=== PATIENT | female | born 1990 | race Hispanic/Latino ===

== ENCOUNTER 2016-09-10 16:27 | Emergency (ER) | payer MEDICAID, OTHER ==
[2016-09-10] MEDS ORDERED: Sodium Chloride 0.9% 1,000 ML IV ONE (17:03)
[2016-09-10 17:11] LABS: RBC URINE 4 /hpf (0-3); URINE BACTERIA OCC (<OCC); URINE BILIRUBIN NEGATIVE (NEGATIVE); URINE COLOR Yellow (YELLOW); URINE GLUCOSE (UA) NORMAL (Normal); URINE KETONE NEGATIVE (NEGATIVE); URINE LEUKOCYTE ESTERASE 2+ Leu/uL (Negative); URINE PROTEIN NEGATIVE (NEGATIVE); URINE UROBILINOGEN NORMAL mg/dL (0.2-1.0); WBC URINE 9 /hpf (0-5)
[2016-09-10 17:15] LABS: URINE BLOOD 1+ (NEGATIVE)
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
[2016-09-10] MEDS ORDERED: Sodium Chloride 0.9% 1,000 ML ONE (17:25)
[2016-09-10 17:41] LABS: CHLORIDE 104 mmol/L (98-107); POTASSIUM 3.5 mmol/L (3.6-5.2); SODIUM 137 mmol/L (132-148)
[2016-09-10 17:43] LABS: BASO % 0.4 % (0.0-2.0); EOS # 0.3 K/uL (0.0-0.7); EOS % 2.8 % (0.0-4.0); GFR AFRICAN-AMERICAN > 60; LYMPH # 1.5 K/uL (1.0-4.3); LYMPH % 16.8 % (20.0-40.0); MEAN CELL VOLUME 89.3 fL (81.0-99.0); MEAN CORPUSCULAR HEMOGLOBIN 30.5 pg (27.0-31.0); MEAN CORPUSCULAR HGB CONC 34.2 g/dL (33.0-37.0); MEAN PLATELET VOLUME 8.7 fL (7.2-11.7); MONO # 0.4 K/uL (0.0-0.8); RED CELL DISTRIBUTION WIDTH 12.4 % (11.5-14.5); WHITE BLOOD COUNT 8.9 K/uL (4.8-10.8)
[2016-09-10 17:44] LABS: ALB/GLOB RATIO 1.2 (1.0-2.1); ALKALINE PHOSPHATASE 24 U/L (38-126); ALT/SGPT 22 U/L (9-52); AST/SGOT 15 U/L (14-36); BILIRUBIN,TOTAL 0.3 mg/dL (0.2-1.3); BLOOD UREA NITROGEN 13 mg/dL (7-17); CALCIUM 8.5 mg/dl (8.6-10.4); CARBON DIOXIDE 21 mmol/L (22-30); GLUCOSE,RANDOM 95 mg/dL (65-105); TOTAL PROTEIN 7.1 g/dL (6.3-8.3)
[2016-09-10 19:37] VITALS: BP 96/65; PULSE 88; RESP 20; TEMP 98.9; O2SAT 99
--- NOTE | 2016-09-11 18:11 | US ---
Ob ultrasound . History: . Sonographic evaluation of the gravid uterus performed Findings: The uterus anteverted measuring approximately 15.0 x 9.8 x 11.4 cm cm. Cervix is closed measuring 4.6 cm. There is a living intrauterine gestation. No evidence to suggest subchorionic hemorrhage. Measurements: Gestational sac: MSD = 7.78 cm = Yolk sac: Not visible pole: CRL = 7.93 cm = 14 weeks Heart motion detected at 152 BPM Average ultrasound age = 14 weeks 1 day +/- 1 week 0 day No free fluid seen in the cul de sac. Ovaries exhibit arterial flow. Impression: Living intrauterine gestation with average ultrasound age of 14 weeks 1 day +/- 1 week 0 day Cardiac activity documented at 172 BPM.
== END 2016-09-10 21:44 | disposition home or self-care (01) ==
LOC: C.ER 16:27
DX: O26.892 Other specified pregnancy related conditions, second trimester (principal); M54.9 Dorsalgia, unspecified; Z3A.14 14 weeks gestation of pregnancy

== ENCOUNTER 2016-11-16 03:29 | Inpatient (IN) | payer OTHER ==
[2016-11-16 03:37] VITALS: BMI 32.9
--- NOTE | 2016-11-16 04:16 | OBHP ---
Datetime: 11/16/2016 03:56 IP Adm Impression: , intrauterine IP Adm Impression Other: demise IP Admit Plan: Admit to unit Admit Comment, IP Provider: chief complaint- decreased movement HPI 26 y/o at 23.4 wga with c/o not feeling the baby move for last few days.Patient denies va ginal bleeding or loss of fluid Patient denies nausea, vomiting, headache, chest pain, shortness of breath,, numbness or tingling in hands and feet course uncomplicated PMH denies PSH denies OBGYN HX ; NVDX2; TOPX2 Social hx denies tobacco,alcohol or illicit drug use Exam see exam section Bedside ultrasound- no heart beat seen A/P 26 y/o at 23.4 wga with c/o not feeling baby move.On bedside ultrasound no heart beat see n.Discussed findings with patient .Reviewed intrauterine .causes discussed in detail with patient.Discussed induction versus D_E.Patient wants to proceed with induction . -Admit patient -ultrasound -routine orders, hsv1 and 2 antobodies, hiv, rpr, rubella, parvovirus antiboides, tsh, hemoglobin a1c, factor v leiden mutation, prothrombin gene mutation and antithrombin 3 mutation analysis -monitor patient closely Pelvic Type - PN: Adequate Extremities - PN: Normal Abdomen - PN: Normal Back - PN: Normal Lungs - PN: Normal Heart - PN: Normal Neurologic - PN: Normal General - PN: Normal EGA AdmitDate IP: 23.4 Vital Signs Provider: Reviewed; Within Normal Limits IP Chief Complaint: Decreased movement Genitourinary Exam: Normal DTRs - PN: Normal
[2016-11-16] MEDS: Lactated Ringer's 1,000 ML IV SCH ×3 (04:25→17:00)
[2016-11-16 04:58] LABS: CHLORIDE 103 mmol/L (98-107); POTASSIUM 3.5 mmol/L (3.6-5.2); SODIUM 137 mmol/L (132-148)
[2016-11-16 04:59] LABS: BASO % 0.3 % (0.0-2.0); EOS # 0.2 K/uL (0.0-0.7); EOS % 1.8 % (0.0-4.0); HEMATOCRIT 35.2 % (34.0-47.0); LYMPH # 1.7 K/uL (1.0-4.3); LYMPH % 21.1 % (20.0-40.0); MEAN CELL VOLUME 89.9 fL (81.0-99.0); MEAN CORPUSCULAR HEMOGLOBIN 30.3 pg (27.0-31.0); MEAN CORPUSCULAR HGB CONC 33.7 g/dL (33.0-37.0); MEAN PLATELET VOLUME 9.7 fL (7.2-11.7); MONO # 0.4 K/uL (0.0-0.8); WHITE BLOOD COUNT 8.2 K/uL (4.8-10.8)
[2016-11-16 05:00] LABS: BILIRUBIN,TOTAL 0.6 mg/dL (0.2-1.3); GFR AFRICAN-AMERICAN > 60
[2016-11-16 05:01] LABS: ALB/GLOB RATIO 1.2 (1.0-2.1); ALKALINE PHOSPHATASE 43 U/L (38-126); ALT/SGPT 32 U/L (9-52); AST/SGOT 28 U/L (14-36); BLOOD UREA NITROGEN 10 mg/dL (7-17); CALCIUM 8.5 mg/dl (8.6-10.4); CARBON DIOXIDE 23 mmol/L (22-30); GLUCOSE,RANDOM 92 mg/dL (65-105); TOTAL PROTEIN 6.8 g/dL (6.3-8.3)
[2016-11-16 05:12] LABS: RBC URINE 5 /hpf (0-3); URINE BACTERIA RARE (<OCC); URINE BILIRUBIN NEGATIVE (NEGATIVE); URINE BLOOD NEGATIVE (NEGATIVE); URINE COLOR Yellow (YELLOW); URINE GLUCOSE (UA) NORMAL (Normal); URINE KETONE NEGATIVE (NEGATIVE); URINE PROTEIN NEGATIVE (NEGATIVE); URINE UROBILINOGEN NORMAL mg/dL (0.2-1.0); WBC URINE 7 /hpf (0-5)
[2016-11-16 05:13] LABS: URINE LEUKOCYTE ESTERASE 1+ Leu/uL (Negative)
[2016-11-16 05:33] LABS: THYROID STIMULATING HORMONE 3.68 mIU/L (0.46-4.68)
[2016-11-16] MEDS ORDERED: Nalbuphine 20 mg/ml Inj (1 ml) IVP PRN (08:38)
--- NOTE | 2016-11-16 10:39 | US ---
PROCEDURE: HISTORY: decreased movement COMPARISON: Obstetrical ultrasound examination undo TECHNIQUE: 09/10/2016 FINDINGS: Ultrasound examination demonstrates an intrauterine gestation in breech presentation. There is no limb movement noted. There is no cardiac activity. The cervix is closed and measures 3.7 cm in length. A normal quantity of amniotic fluid is visualized. Anterior placenta is noted. There is no placenta previa. biometry yields a gestational age of 23 weeks 4 days. The estimated weight is 561.17 g. The THONG by ultrasound examination is 03/11/2017. IMPRESSION: Findings consistent with demise. No cardiac activity observed. Twenty-three week 4 day gestation. Breech presentation. No placenta previa.
--- NOTE | 2016-11-16 13:24 | OBPN ---
Datetime: 11/16/2016 11:18 IP Procedures Other: cervical ripening/induction IP Progress Impression Other: IUFD at 23w 4d IP Informed Consent Obtain: Dilatation and Curretage; Risks, Benefits and Alternatives Discussed IP Progress Plan: Induction; Cervical Ripening Contraction Comments Provider: none FHR - Baseline A Provider: N/A Gestation - Est Wks by US: 23w 4d IP Progress Note Comment: Patient seen, evaluated and counseled at approximately 0820 hours. Receive d in bed in Treatment room; later transfered to R #3; significant other present and emotionally dis traught. At that time, S/P official ultrasound evaluaton confirming intrauterine at 24 we eks. Patient also crying appropriately. 1) patient was offered having an autopsy performed - grossly and for chromosomal analysis. She, an d FOB, declined (modified "refusal" obtained, signed, dated, witnessed and placed in chart. 2) induction process was explained. Discussion of possible risks, potential complications includi ng but not limited to complications stemming from Breech presentation (head entrapment) and the possi blility of surgical intervention - from uterine evacuation (curettage) of any retained products of co nception to exploratory laparotomy to hysterectomy. Other possible complications were also discussed including but notlimted to infection, requiring antibiotics; hemorrhage, requiring blood transfusion. Patient expressed an understanding and agrees to the aboe. No questoins offered. Consents signed, da blake, witnessed and placed in the chart. P.E.: WD in NAD; appropriately sad. Reports mild abdominal cramps. Lungs: CTA bilaterally Cardiac: RRR, normal S1, S2 Abdomen: Gravid. Soft. Non tender in all quadrants - cervical exam: as above. 600 micrograms placed in posterior vaginal vault Extremities: (+) multiple tattooes; (+) scratch suggs on lower extremities, right >> left. No calf tenderness Labs: 1) sono: Breech, no cardiac activity, AGA 24 weeks. 2) UDS: (+) opiates and cocaine Assessment: 35 yo P2022, 23w 4d, IUFD for induction and uterine evacuation. As above. Clinically s table. Plan: 1) NPO 2) cytotec 600 micrograms pV every 6 hours, until fetus is delivered 3) Nubain 10 mg IVP every 4 hours, PRN, moderate to severe pain 4) Phenergan 25 milligrams IVP every 4 hours, moderate to severe pain 5) Bereavement counseling. 6) Close observation Vital Signs Provider: Reviewed; Within Normal Limits Dilatation, Provider: FT Effacement, Provider: 40 Station, Provider: -3
[2016-11-16] MEDS ORDERED: Nalbuphine 20 mg/ml Inj (1 ml) ONE (17:08)
[2016-11-16 17:10] LABS: RAPID PLASMA REAGIN NONREACTIVE (NONREACTIVE)
[2016-11-16] MEDS ORDERED: Clindamycin 600 MG in Sodium Chloride 0.9% 100 ML IV SCH (19:00)
[2016-11-16] MEDS ORDERED: Gentamicin 80 mg/2mL Inj. IVPB SCH (19:00)
[2016-11-16] MEDS ORDERED: Clindamycin 600mg/50ml D5W 600 MG/50 ML VIAL IVPB ONE (19:45)
[2016-11-16] MEDS: Clindamycin 600mg/50ml D5W 600 MG/50 ML VIAL IVPB SCH (19:47)
[2016-11-16] MEDS ORDERED: Lidocaine 2% Inj (20ml) ONE (20:19)
[2016-11-16] MEDS ORDERED: Oxytocin 30 UNIT 30 UNITS/500 ML BAG IV SCH (21:00)
[2016-11-16] MEDS: Gentamicin 330 MG in Sodium Chloride 0.9% 250 ML IVPB SCH (22:30)
[2016-11-16 23:57] LABS: BASO % 0.2 % (0.0-2.0); EOS % 0.2 % (0.0-4.0); HEMATOCRIT 30.9 % (34.0-47.0); LYMPH # 2.1 K/uL (1.0-4.3); LYMPH % 13.7 % (20.0-40.0); MEAN CELL VOLUME 90.6 fL (81.0-99.0); MEAN CORPUSCULAR HEMOGLOBIN 30.4 pg (27.0-31.0); MEAN CORPUSCULAR HGB CONC 33.6 g/dL (33.0-37.0); MEAN PLATELET VOLUME 9.1 fL (7.2-11.7); MONO # 0.9 K/uL (0.0-0.8); MONO % 5.8 % (0.0-10.0); NRBC % 0.1 % (0.0-2.0); WHITE BLOOD COUNT 15.3 K/uL (4.8-10.8)
[2016-11-17] MEDS: Ampicillin 2 GM in Sodium Chloride 0.9% 100 ML IVPB SCH ×5 (00:02→22:56)
[2016-11-17] MEDS ORDERED: Oxycodone/Acetaminophen 5/325 mg Tab PO PRN (01:28)
[2016-11-17] MEDS: Clindamycin 600mg/50ml D5W 600 MG/50 ML VIAL IVPB SCH ×3 (02:40→18:00)
[2016-11-17] MEDS: Lactated Ringer's 1,000 ML IV SCH (04:24)
--- NOTE | 2016-11-17 06:52 | OBDS ---
DELIVERY PERSONNEL Delivery Doctor: Mir Bob MD Clinical Team Manager: Reba Osei RN MATERNAL INFORMATION Delivery Anesthesia: None Medications in Delivery: pitocin Estimated Blood Loss (ml): 300 Placenta Cultured: No Maternal Complications: None Provider Comments: Vagianl delivery of fetus, Breech presentation, en caul, RSA, Apgars 0/0; sk in on forehead and left thigh - slight peeling. Foul odor noted to bloody amnionic fluid; also meconi um stained. Umbilical cord doubly clamped and cut. High dose pitocin initiated. Subsequently, placenta passed spontaneously. Also noted for foul odor. Grossly intact; difficult t o appreciate vessels; cord is edematous. Bimanual massage performed; blood clots expressed and uterus contracted and firm. Empathy and support provided to parents. Infant wrapped appropriately; placed in warmer for them t o view at their discretion. Patient had spiked a fever prior to delivery: started on gentamicina nd clindamycin. Further tempe rature elevation to 101.6 after delivery: ampicillin added. Mother in stable conditoin. LABOR SUMMARY EDC: 03/11/2017 00:00 No. Babies in Womb: 1 Attempted: No Labor Anesthesia: None LABOR INFORMATION Reason for Induction: Demise Onset of Labor: 11/16/2016 19:34 Complete Dilatation: 11/16/2016 20:15 Cervical Ripening Agents: Cytotec @ (Annotations: 600mcg intravaginal by Dr. Bob) Oxytocin: N/A Group B Beta Strep: N/A Antibiotics # of Doses: 1 Antibiotics Time of Last Dose: 1946 Steroids Given: None Reason Steroids Not Administered: Not Applicable MEMBRANES Membranes Rupture Method: Spontaneous Rupture of Membranes: 11/16/2016 20:20 Length of Rupture (hrs): 0.03 Amniotic Fluid Color: Heavy Meconium Amniotic Fluid Amount: Moderate Amniotic Fluid Odor: None STAGES OF LABOR Stage 1 hrs: 0 Stage 1 min: 41 Stage 2 hrs: 0 Stage 2 min: 7 Stage 3 hrs: 0 Stage 3 min: 50 Total Time in Labor hrs: 1 Total Time in Labor min: 38 VAGINAL DELIVERY Episiotomy: None Laceration Extension: N/A Laceration Type: None Laceration Repair: Not Applicable Initial Vag Sponge Count: 10 Final Vag Sponge Count: 10 Initial Vag Sharps Count: 0 Sponge Count Correct: Yes Sharps Count Correct: N/A Count Comment: correct BABY A INFORMATION Infant Delivery Date/Time: 11/16/2016 20:22 Method of Delivery: Vaginal Born in Route : No : N/A Forceps: N/A Vacuum Extraction: N/A Shoulder Dystocia : No SHOULDER DYSTOCIA BABY A Delivery Date/Time: 11/16/2016 20:22 PRESENTATION/POSITION BABY A Presentation: Breech Cephalic Presentation: N/A Breech Presentation: Sreekanth PLACENTA INFORMATION BABY A Placenta Delivery Time : 11/16/2016 21:12 Placenta Method of Delivery: Spontaneous Placenta Status: Delivered SCORES BABY A Heart Rate 1 min: Absent Resp Effort 1 min: Absent Reflex Irritability 1 min: No Response Muscle Tone 1 min: Flaccid Color 1 min: Blue/Pale SCORE 1 MIN: 0 Heart Rate 5 min: Absent Resp Effort 5 min: Absent Reflex Irritability 5 min: No Response Muscle Tone 5 min: Flaccid Color 5 min: Blue/Pale SCORE 5 MIN: 0 INFORMATION BABY A Gestational Age at Delivery: 23.4 Gestational Status: Outcome : Stillborn Sex: Male WEIGHT/LENGTH BABY A Infant Birthweight (gms): 730 Infant Weight (lb): 1 Weight (oz): 10 Infant Length Inches: 11.50 Infant Length cms: 29.2 CORD INFORMATION BABY A Cord Blood Taken: N/A Infant Suction: None ASSESSMENT BABY A Infant Complications: Meconium; Other Complications Other: demise Physical Findings at Delivery: Other Physical Findings Other: demise some skin peeling noted Health Technician Hearing/ALS Called : No Care By: Daniele TILLEY
--- NOTE | 2016-11-17 08:12 | OBPPN ---
Datetime: 11/17/2016 08:07 PP Pain Prov: Within normal limits PP Nausea Prov: Denies PP Flatus Prov: Yes PP Heart Prov: Normal PP Lungs Prov: Normal PP Abdomen/Uterus Prov: Normal PP CVA Tenderness Prov: Normal PP Extremities Prov: Normal PP C/S Incision Prov: Not Applicable PP Progress Prov: Not Applicable PP Progress Note Prov: S-patient denies any complaints.Pain well controlled.Denies nausea, vomiting, headache. chest pain, shortness of breath, numbness or tingling in hands and feet O-VS tmax 101.4 at 9.44 pm 11/16/2016.afebrile now Fundus firm and below umbilcius Extremities no calf tenderness A/P Patient s/p vaginal delivery ppd1.IUFD.Intrapartum fever.Patient on amp, gent and clinda.afebr ile now -continue antibiotics till afebrile for 24 hours -social science instructor consult -anticipate discharge tomorrow if stable - Vital Signs Provider PP: Reviewed Vital Signs Provider Details PP: tmax at 101.8 at 9.44 pm on 11/16/2016
[2016-11-17] MEDS: Saccharomyces Boulardi 250 mg Cap PO SCH (11:41)
[2016-11-17 12:09] LABS: BASO % 0.3 % (0.0-2.0); EOS # 0.1 K/uL (0.0-0.7); EOS % 1.3 % (0.0-4.0); HEMATOCRIT 32.7 % (34.0-47.0); LYMPH # 1.6 K/uL (1.0-4.3); LYMPH % 17.9 % (20.0-40.0); MEAN CELL VOLUME 90.9 fL (81.0-99.0); MEAN CORPUSCULAR HEMOGLOBIN 30.7 pg (27.0-31.0); MEAN CORPUSCULAR HGB CONC 33.8 g/dL (33.0-37.0); MEAN PLATELET VOLUME 9.4 fL (7.2-11.7); MONO # 0.5 K/uL (0.0-0.8); MONO % 5.8 % (0.0-10.0); WHITE BLOOD COUNT 8.9 K/uL (4.8-10.8)
[2016-11-17 16:04] LABS: TOXOPLASMA IGG AB <0.91 (<0.91)
[2016-11-17 18:40] LABS: CYTOMEGALOVIRUS AB (IGM) <30.00 AU/mL
[2016-11-17] MEDS: Gentamicin 330 MG in Sodium Chloride 0.9% 250 ML IVPB SCH (21:10)
[2016-11-18] MEDS: Clindamycin 600mg/50ml D5W 600 MG/50 ML VIAL IVPB SCH (03:26)
[2016-11-18] MEDS: Ampicillin 2 GM in Sodium Chloride 0.9% 100 ML IVPB SCH (04:24)
--- NOTE | 2016-11-18 08:14 | OBPPN ---
Datetime: 11/18/2016 08:12 PP Pain Prov: Within normal limits PP Nausea Prov: Denies PP Flatus Prov: Yes PP Heart Prov: Normal PP Lungs Prov: Normal PP Abdomen/Uterus Prov: Normal PP Extremities Prov: Normal PP Comments Phys Exam Prov: fudus below umblicus ext no edema,no calf ten PP Impression Prov: Normal progression PP Plan Prov: Discharge PP Progress Note Prov: pt was seen at bed side, pain under control,no n/v, tolerating deit,voiding,m in lochias,no fever ppd#1 s/p non viable delivery dc home no sex motrin prn doxycyline 100 mg bid x 5 days f/u in clinic in 2week Vital Signs Provider PP: Reviewed; Within Normal Limits
--- NOTE | 2016-11-18 08:16 | OBDCSUM ---
Datetime: 11/18/2016 08:14 Discharged to, Provider: Home Follow up at, Provider: clinic Disch Instr Diet: Regular Follow up in weeks, Provider: 2week Disch Activity Restrictions: No exercising; No driving; Minimize walking; Minimize stair-climbing; N o sexual activity; Nothing in vagina - Tsaile, tampons, douche Discharge Comment, Provider: no sex motrin prn doxyclyine 100 mg bid x 5 days f/u in 2week Discharge Diagnosis Prov Other: non viable delivery 23weeks
--- NOTE | 2016-11-18 08:29 | CP.PCM.DIS ---
Provider - Provider Date of Admission: 11/16/16 04:03 Attending physician: Ruiz Nuñez MD Time Spent in preparation of Discharge (in minutes): 40 Diagnosis - Discharge Diagnosis (1) demise Status: Resolved Hospital Course - Lab Results Lab Results: Most Recent Lab Values WBC 8.9 K/uL (4.8-10.8) 11/17/16 11:59 RBC 3.59 Mil/uL (3.80-5.20) L 11/17/16 11:59 Hgb 11.0 g/dL (11.0-16.0) 11/17/16 11:59 Hct 32.7 % (34.0-47.0) L 11/17/16 11:59 MCV 90.9 fL (81.0-99.0) 11/17/16 11:59 MCH 30.7 pg (27.0-31.0) 11/17/16 11:59 MCHC 33.8 g/dL (33.0-37.0) 11/17/16 11:59 RDW 13.0 % (11.5-14.5) 11/17/16 11:59 Plt Count 188 K/uL (130-400) 11/17/16 11:59 MPV 9.4 fL (7.2-11.7) 11/17/16 11:59 Neut % (Auto) 74.7 % (50.0-75.0) 11/17/16 11:59 Lymph % (Auto) 17.9 % (20.0-40.0) L 11/17/16 11:59 Craig % (Auto) 5.8 % (0.0-10.0) 11/17/16 11:59 Eos % (Auto) 1.3 % (0.0-4.0) 11/17/16 11:59 Baso % (Auto) 0.3 % (0.0-2.0) 11/17/16 11:59 Neut # 6.6 K/uL (1.8-7.0) 11/17/16 11:59 Lymph # 1.6 K/uL (1.0-4.3) 11/17/16 11:59 Craig # 0.5 K/uL (0.0-0.8) 11/17/16 11:59 Eos # 0.1 K/uL (0.0-0.7) 11/17/16 11:59 Baso # 0.0 K/uL (0.0-0.2) 11/17/16 11:59 Sodium 137 mmol/L (132-148) 11/16/16 04:49 Potassium 3.5 mmol/L (3.6-5.2) L 11/16/16 04:49 Chloride 103 mmol/L (98-107) 11/16/16 04:49 Carbon Dioxide 23 mmol/L (22-30) 11/16/16 04:49 Anion Gap 15 (10-20) 11/16/16 04:49 BUN 10 mg/dL (7-17) 11/16/16 04:49 Creatinine 0.4 MG/DL (0.7-1.2) L 11/16/16 04:49 Est GFR ( Amer) > 60 11/16/16 04:49 Est GFR (Non-Af Amer) > 60 11/16/16 04:49 Random Glucose 92 mg/dL (65-105) 11/16/16 04:49 Hemoglobin A1c 5.1 % (4.2-6.5) 11/16/16 04:49 Calcium 8.5 mg/dl (8.6-10.4) L 11/16/16 04:49 Total Bilirubin 0.6 mg/dL (0.2-1.3) 11/16/16 04:49 AST 28 U/L (14-36) 11/16/16 04:49 ALT 32 U/L (9-52) 11/16/16 04:49 Alkaline Phosphatase 43 U/L (38-126) 11/16/16 04:49 Total Protein 6.8 g/dL (6.3-8.3) 11/16/16 04:49 Albumin 3.7 g/dL (3.5-5.0) 11/16/16 04:49 Globulin 3.1 gm/dL (2.2-3.9) 11/16/16 04:49 Albumin/Globulin Ratio 1.2 (1.0-2.1) 11/16/16 04:49 TSH 3rd Generation 3.68 mIU/L (0.46-4.68) 11/16/16 04:49 Urine Color Yellow (YELLOW) 11/16/16 04:49 Urine Clarity Hazy (Clear) 11/16/16 04:49 Urine pH 6.0 (5.0-8.0) 11/16/16 04:49 Ur Specific Muse 1.006 (1.003-1.030) 11/16/16 04:49 Urine Protein Negative mg/dL (NEGATIVE) 11/16/16 04:49 Urine Glucose (UA) Normal mg/dL (Normal) 11/16/16 04:49 Urine Ketones Negative mg/dL (NEGATIVE) 11/16/16 04:49 Urine Blood Negative (NEGATIVE) 11/16/16 04:49 Urine Nitrate Negative (NEGATIVE) 11/16/16 04:49 Urine Bilirubin Negative (NEGATIVE) 11/16/16 04:49 Urine Urobilinogen Normal mg/dL (0.2-1.0) 11/16/16 04:49 Ur Leukocyte Esterase 1+ Sanjiv/uL (Negative) H 11/16/16 04:49 Urine WBC (Auto) 7 /hpf (0-5) H 11/16/16 04:49 Urine RBC (Auto) 5 /hpf (0-3) H 11/16/16 04:49 Ur Squamous Epith Cells 7 /hpf (0-5) H 11/16/16 04:49 Urine Bacteria Rare (<OCC) 11/16/16 04:49 Urine Opiates Screen Negative (NEGATIVE) 11/16/16 04:49 Urine Methadone Screen Negative (NEGATIVE) 11/16/16 04:49 Ur Barbiturates Screen Negative (NEGATIVE) 11/16/16 04:49 Ur Phencyclidine Scrn Negative (NEGATIVE) 11/16/16 04:49 Ur Amphetamines Screen Negative (NEGATIVE) 11/16/16 04:49 U Benzodiazepines Scrn Negative (NEGATIVE) 11/16/16 04:49 U Oth Cocaine Metabols Negative (NEGATIVE) 11/16/16 04:49 U Cannabinoids Screen Negative (NEGATIVE) 11/16/16 04:49 RPR Nonreactive (NONREACTIVE) 11/16/16 04:49 CMV IgG Ab 4.20 U/mL H 11/16/16 07:00 CMV IgM Ab <30.00 AU/mL 11/16/16 07:00 Hep Bs Antigen Negative (NEGATIVE) 11/16/16 04:49 Hep Bs Antibody Positive (NEGATIVE) 11/16/16 04:49 Hepatitis C Antibody Negative (NEGATIVE) 11/16/16 04:49 HSV I IgG Ab 28.00 index H 11/16/16 07:00 HSV II IgG 15.00 index H 11/16/16 07:00 HIV 1&2 Antibody Screen Negative (NEGATIVE) 11/16/16 04:49 Rubella IgG Antibody Positive (POSITIVE) 11/16/16 04:49 Toxoplasma IgG Ab <0.91 (<0.91) 11/16/16 07:00 Blood Type A POSITIVE 11/16/16 05:15 Antibody Screen Negative 11/16/16 05:15 - Hospital Course Hospital Course: This is a 26 year old female who presented at 23.4wks gestation with complaint of decreased and subsequent cessation of appreciable movement. The patient denied ROM, N/V/D, and vaginal bleeding on admission. The patient delivered a fetus on 11/17/16. During the delivery, malodorous, bloody amniotic fluid was appreciated. Prior to deliver the patient was noted to be febrile at 101.6*. The patient was started on gentamycin, clindamycin, and ampicillin. The patient was monitored on the floor. After 24 hours afebrile, the patient was stable for DC home. The discharge plan and follow ups were extensively discussed with the patient who verbalized complete understanding and agreement with the plan and follow up plan. The patient's medical condition was also discussed and complete understanding was again verbalized. At this time , after discussion of all issues, the patient was deemed medically fit for discharge - Date & Time of H&P Date of H&P: 11/16/16 Time of H&P: 04:16 Discharge Exam - Head Exam Head Exam: ATRAUMATIC, NORMAL INSPECTION, NORMOCEPHALIC - Eye Exam Eye Exam: EOMI, Normal appearance Pupil Exam: NORMAL ACCOMODATION - ENT Exam ENT Exam: Mucous Membranes Moist - Neck Exam Neck exam: Full Rom, Normal Inspection - Respiratory Exam Respiratory Exam: Clear to PA & Lateral, NORMAL BREATHING PATTERN, UNREMARKABLE. absent: Rales, Rhonchi, Wheezes, Respiratory Distress, Stridor - Cardiovascular Exam Cardiovascular Exam: REGULAR RHYTHM, RRR, +S1, +S2. absent: Diastolic murmur, Systolic Murmur - GI/Abdominal Exam GI & Abdominal Exam: Normal Bowel Sounds, Soft, Unremarkable. absent: Distended , Firm, Guarding, Rigid, Tenderness - Neurological Exam Neurological exam: Alert, CN II-XII Intact, Normal Gait, Oriented x3 - Skin Skin Exam: Dry, Intact, Normal Color, Warm Discharge Plan - Discharge Medications Prescriptions: Doxycycline Hyclate 100 mg PO BID #14 capsule Ibuprofen [Motrin Tab] 800 mg PO TID PRN #30 tab PRN Reason: Pain - Follow Up Plan Condition: GOOD Disposition: HOME/ ROUTINE Instructions: Doxycycline (By mouth), Ibuprofen (By mouth) Additional Instructions: 1.) Take Doxycycline 1 tab by mouth twice daily x 7 days 2.) Take Motrin by mouth every 8 hours as needed for pain 3.) Refrain from sexual intercourse x 4 weeks 4.) Bleeding and spotting is possible for the next 4-6 weeks 5.) If fever returns, please return to the ED for evaluation 6.) If any symptoms return, please return to the ED for evaluation
[2016-11-18 08:39] VITALS: BP 104/56; PULSE 72; RESP 18; TEMP 97.9; O2SAT 98
[2016-11-18] MEDS: Saccharomyces Boulardi 250 mg Cap PO SCH (09:03)
[2016-11-18] MEDS ORDERED: Potassium Chloride 20 mEq ER Tab PO SCH (10:00)
[2016-11-18 13:56] LABS: PARVOVIRUS B19 AB (IGG) 0.2 (<0.9); PARVOVIRUS B19 AB (IGM) 0.3 (<0.9)
[2016-11-18 14:22] LABS: TOXOPLASMA IGM AB Negative (Negative)
== END 2016-11-18 09:00 | disposition home or self-care (01) | DRG 373 ==
LOC: C.EROB 03:29 → C.4D 04:03 → C.4M 23:30
PROVIDERS: ADMIT Student in an Organized Health Care Education/Training Program; ATTEND Student in an Organized Health Care Education/Training Program
PROC: 10E0XZZ Delivery of Products of Conception, External Approach (ICD-10-PCS; principal; 2016-11-16)
DX: O36.4XX0 Maternal care for intrauterine death, not applicable or unspecified (principal); Z37.1 Single stillbirth

== ENCOUNTER 2017-04-17 19:22 | Emergency (ER) | payer OTHER ==
[2017-04-17 19:22] VITALS: BMI 32.9
[2017-04-17 19:37] VITALS: BP 139/90; PULSE 101; RESP 16; TEMP 98.6; O2SAT 98
--- NOTE | 2017-04-17 20:38 | C.PDOC ---
History Of Present Illness 27 year old female who presents to the ER with a complaint of intermittent loose stools and feeling bloated for the past 5 months and is concerned for IBS. Patient has no PMD and is requesting a full work up; denies bloody stools, abdominal pain,nausea, vomiting or urinary symptoms. Time Seen by Provider: 04/17/17 19:55 Chief Complaint (Nursing): Abdominal Pain History Per: Patient History/Exam Limitations: no limitations Onset/Duration Of Symptoms: Days, Intermittent Episodes Current Symptoms Are (Timing): Still Present Associated Symptoms: Diarrhea. denies: Fever, Chills, Nausea, Vomiting, Urinary Symptoms Exacerbating Factors: None Alleviating Factors: None Recent travel outside of the [place]: No Past Medical History Reviewed: Historical Data, Nursing Documentation, Vital Signs Vital Signs: Last Vital Signs Temp 98.6 F 04/17/17 19:35 Pulse 101 H 04/17/17 19:35 Resp 16 04/17/17 19:35 BP 139/90 04/17/17 19:35 Pulse Ox 98 04/17/17 23:51 - Medical History PMH: No Chronic Diseases Surgical History: No Surg Hx - [facility] Procedures DELIVERY OF PRODUCTS OF CONCEPTION, EXTERNAL APPROACH (11/16/16) MONITORING NOS (10/17/14) MANUAL ASSIST DELIV NEC (10/17/14) REMOVAL OF FB NOS (10/01/14) Family History: States: Unknown Family Hx - Social History Hx Tobacco Use: No Hx Alcohol Use: No Hx Substance Use: No - Immunization History Hx Tetanus Toxoid Vaccination: No Hx Influenza Vaccination: No Hx Pneumococcal Vaccination: No Review Of Systems Constitutional: Negative for: Fever, Chills Gastrointestinal: Positive for: Diarrhea. Negative for: Nausea, Vomiting, Abdominal Pain, Melena, Hematochezia Physical Exam - Physical Exam Appears: Non-toxic, No Acute Distress Skin: Normal Color, Warm, Dry Head: Atraumatic, Normacephalic Oral Mucosa: Moist Chest: Symmetrical, No Tenderness Cardiovascular: Rhythm Regular Respiratory: Normal Breath Sounds, No Rales, No Rhonchi, No Wheezing Gastrointestinal/Abdominal: Soft, No Tenderness, No Distention, No Guarding, No Rebound Neurological/Psych: Oriented x3, Normal Speech, Normal Cognition ED Course And Treatment O2 Sat by Pulse Oximetry: 98 (Room air) Pulse Ox Interpretation: Normal Progress Note: Patient is resting comfortably, and is in no acute distress. Patient was instructed to follow up with the clinic in 1-2 days for further evaluation. Disposition Counseled Patient/Family Regarding: Diagnosis, Need For Followup, Rx Given - Disposition Referrals: [facility] [Outside] [facility] [Outside] [facility] [Outside] Disposition: HOME/ ROUTINE Disposition Time: 20:36 Condition: STABLE Additional Instructions: Please follow up in clinic Return to ER if worse Instructions: Gas and Bloating (ED) Forms: [employer] (Kittitian) - Clinical Impression Clinical Impression: Encounter for medical assessment - Scribe Statement The provider has reviewed the documentation as recorded by the Scribe Milton Perez All medical record entries made by the Scribe were at my direction and personally dictated by me. I have reviewed the chart and agree that the record accurately reflects my personal performance of the history, physical exam, medical decision making, and the department course for this patient. I have also personally directed, reviewed, and agree with the discharge instructions and disposition.
== END 2017-04-17 20:50 | disposition home or self-care (01) ==
LOC: C.ER 19:22
DX: Z00.8 Encounter for other general examination (principal)

== ENCOUNTER 2017-07-20 21:13 | Emergency (ER) | payer MEDICAID, OTHER ==
[2017-07-20 21:13] VITALS: BMI 32.9
[2017-07-20 21:31] VITALS: BP 134/84; PULSE 90; RESP 20; TEMP 99; O2SAT 98
[2017-07-20 21:51] LABS: HCG,QUALITATIVE URINE NEGATIVE (NEGATIVE); SQUAMOUS EPITHIAL 8 /hpf (0-5); URINE BACTERIA RARE (<OCC); URINE BILIRUBIN NEGATIVE (NEGATIVE); URINE BLOOD NEGATIVE (NEGATIVE); URINE CLARITY Clear (Clear); URINE COLOR Amber (YELLOW); URINE GLUCOSE (UA) NORMAL (Normal); URINE LEUKOCYTE ESTERASE NEG Leu/uL (Negative); URINE NITRATE POSITIVE (NEGATIVE); URINE PROTEIN NEGATIVE (NEGATIVE)
--- NOTE | 2017-07-20 21:57 | C.PDOC ---
History Of Present Illness 27 y/o female complaining of vaginal pain worsening over the last week that is making intercourse difficult. She also complains of dysuria, white vaginal discharge, and lower abdominal pain/pressure. She did try Azo OTC without improvement. Denies fever or chills. She is in a monogamous relationship. no hx gonorrhea or chlamydia. A3 Time Seen by Provider: 07/20/17 21:32 Chief Complaint (Nursing): Female Genitourinary History Per: Patient Onset/Duration Of Symptoms: Days (7) Current Symptoms Are (Timing): Still Present Severity: Moderate Quality Of Discomfort: Pressure, "Pain" Associated Symptoms: Urinary Symptoms. denies: Fever, Chills Recent travel outside of the [place]: No Additional History Per: Patient Abnormal Vaginal Bleeding: No Past Medical History Vital Signs: Last Vital Signs Temp 99.0 F 07/20/17 21:27 Pulse 90 07/20/17 21:27 Resp 20 07/20/17 21:27 BP 134/84 07/20/17 21:27 Pulse Ox 98 07/20/17 22:31 - Medical History PMH: No Chronic Diseases - [facility] Procedures DELIVERY OF PRODUCTS OF CONCEPTION, EXTERNAL APPROACH (11/16/16) MONITORING NOS (10/17/14) MANUAL ASSIST DELIV NEC (10/17/14) REMOVAL OF FB NOS (10/01/14) Family History: States: Unknown Family Hx - Social History Hx Tobacco Use: No Hx Alcohol Use: No Hx Substance Use: No - Immunization History Hx Tetanus Toxoid Vaccination: No Hx Influenza Vaccination: No Hx Pneumococcal Vaccination: No Review Of Systems Constitutional: Negative for: Fever, Chills Gastrointestinal: Positive for: Abdominal Pain (suprapubic) Genitourinary: Positive for: Vaginal Discharge, Pelvic Pain Physical Exam - Physical Exam Appears: Well, Non-toxic Skin: Warm, Dry Head: Atraumatic, Normacephalic Eye(s): bilateral: Normal Inspection Oral Mucosa: Moist Cardiovascular: Rhythm Regular, No Murmur Respiratory: No Decreased Breath Sounds, No Rales, No Rhonchi Gastrointestinal/Abdominal: Soft, No Tenderness, No Guarding, No Rebound Back: No CVA Tenderness Pelvic: Normal External Exam, No Vaginal Bleeding (cervical os irregular appearing, small area of darker red tissue ), No Cervical Motion Tenderness, No Adnexal Tenderness, Other Neurological/Psych: Oriented x3, Normal Speech, Normal Cognition ED Course And Treatment O2 Sat by Pulse Oximetry: 98 (RA) Pulse Ox Interpretation: Normal Medical Decision Making Medical Decision Making: Impression: Vaginal pain, vaginal discharge, dysuria Plan: - UA - Pelvic Exam - Urine - Genital culture and G&C swab 1021 pm pt iwth no cmt, scant discharge,. irregular appearing cervix (discussed iwth her she needs to f/u on that with pap and patient ombudsperson), soft abdomen and nitrite pos urine. tx for uti, f/u clinic for further patient ombudsperson evaluation Disposition Counseled Patient/Family Regarding: Studies Performed, Diagnosis, Need For Followup, Rx Given - Disposition Referrals: [facility] [Outside] Disposition: HOME/ ROUTINE Disposition Time: 22:23 Condition: STABLE Additional Instructions: Please take antibiotics as prescribed, Follow up in medical/women health clinic in next week- and follow up results of cultures done today in ED. Recommend pap smear at [facility]. Tylenol or Motrin for pain. Drink incresed fluids- water and cranberry juice suggested. Prescriptions: Nitrofurantoin Macrocrystals [Macrobid] 100 mg PO BID #14 cap Instructions: Urinary Tract Infection in Women (GEN) Forms: [facility] (Paraguayan), General Discharge Instructions - Clinical Impression Clinical Impression: Urinary tract infection - Scribe Statement The provider has reviewed the documentation as recorded by the Scribe Alyssa Mckinley
== END 2017-07-20 22:43 | disposition home or self-care (01) ==
LOC: C.ER 21:13
DX: N39.0 Urinary tract infection, site not specified (principal)

== ENCOUNTER 2018-04-09 11:11 | Emergency (ER) | payer OTHER ==
[2018-04-09 11:11] VITALS: BMI 32.9
[2018-04-09 12:30] LABS: HCG,QUALITATIVE URINE POSITIVE (NEGATIVE)
[2018-04-09 12:37] LABS: URINE BACTERIA RARE (<OCC); URINE BILIRUBIN NEGATIVE (NEGATIVE); URINE BLOOD 1+ (NEGATIVE); URINE CLARITY Clear (Clear); URINE COLOR Yellow (YELLOW); URINE GLUCOSE (UA) NORMAL (Normal); URINE LEUKOCYTE ESTERASE 1+ Leu/uL (Negative); URINE PROTEIN NEGATIVE (NEGATIVE); URINE UROBILINOGEN NORMAL mg/dL (0.2-1.0)
[2018-04-09 12:40] LABS: SQUAMOUS EPITHIAL 6 /hpf (0-5)
--- NOTE | 2018-04-09 12:52 | C.PDOC ---
History Of Present Illness 28 year old female with a history of urinary tract infections presents to the ED for evaluation of dysuria for 4-5 days. Patient notes she has had prior urinary tract infections with similar symptoms. Denies vaginal bleeding, vaginal discharge, abdominal pain, flank pain, fever, vomiting, and any other associated symptoms. Time Seen by Provider: 04/09/18 11:41 Chief Complaint (Nursing): Female Genitourinary History Per: Patient History/Exam Limitations: no limitations Onset/Duration Of Symptoms: Days Current Symptoms Are (Timing): Still Present Past Medical History Reviewed: Historical Data, Nursing Documentation, Vital Signs Vital Signs: Last Vital Signs Temp 98.5 F 04/09/18 11:45 Pulse 93 H 04/09/18 11:45 Resp 18 04/09/18 11:45 BP 127/78 04/09/18 11:45 Pulse Ox 100 04/09/18 11:45 - [facility] Procedures DELIVERY OF PRODUCTS OF CONCEPTION, EXTERNAL APPROACH (11/16/16) MONITORING NOS (10/17/14) MANUAL ASSIST DELIV NEC (10/17/14) REMOVAL OF FB NOS (10/01/14) Family History: States: Unknown Family Hx - Social History Hx Tobacco Use: No Hx Alcohol Use: No Hx Substance Use: No - Immunization History Hx Tetanus Toxoid Vaccination: No Hx Influenza Vaccination: No Hx Pneumococcal Vaccination: No Review Of Systems Constitutional: Negative for: Fever Gastrointestinal: Negative for: Vomiting, Abdominal Pain Genitourinary: Positive for: Dysuria. Negative for: Vaginal Discharge, Vaginal Bleeding Musculoskeletal: Negative for: Other (flank pain. ) Physical Exam - Physical Exam Appears: Well, Non-toxic, Other (comfortable. ) Skin: Normal Color, Warm, Dry Head: Atraumatic, Normacephalic Cardiovascular: Rhythm Regular, No Murmur Respiratory: Normal Breath Sounds, No Rales, No Rhonchi, No Wheezing Gastrointestinal/Abdominal: Normal Exam, Soft, No Tenderness Neurological/Psych: Oriented x3, Normal Speech Gait: Steady ED Course And Treatment O2 Sat by Pulse Oximetry: 100 (RA) Pulse Ox Interpretation: Normal Progress Note: Urine HCG. Urinalysis. Urine culture sent. Given Macrobid. (+) Urine. (+) Urine HCG. Patient stable for discharge home. Prescribed Macrobid and Complete. Disposition Counseled Patient/Family Regarding: Studies Performed, Diagnosis, Need For Followup, Rx Given - Disposition Referrals: [facility] [Outside] Disposition: HOME/ ROUTINE Disposition Time: 13:00 Condition: STABLE Additional Instructions: FOLLOW UP WITH YOUR SPINE NURSE WITHIN 1 WEEK USE MEDICATIONS DIRECTED RETURN TO ER IF SYMPTOMS WORSEN Prescriptions: Nitrofurantoin Macrocrystals [Macrobid] 1 cap PO BID #14 cap 21/Iron Fu/Folic Acid [ Complete Caplet] 1 each PO DAILY #30 tablet Instructions: Urinary Tract Infection, Adult (DC), - The First Month Forms: [employer] (Estonian) Print Language: PARAGUAYAN - Clinical Impression Clinical Impression: UTI (urinary tract infection), - Scribe Statement The provider has reviewed the documentation as recorded by the Scribe (Nighat Pickett) Provider Attestation: All medical record entries made by the Scribe were at my direction and personally dictated by me. I have reviewed the chart and agree that the record accurately reflects my personal performance of the history, physical exam, medical decision making, and the department course for this patient. I have also personally directed, reviewed, and agree with the discharge instructions and disposition.
[2018-04-09 13:01] VITALS: BP 122/70; PULSE 72; RESP 16; TEMP 98.2
[2018-04-09 15:20] VITALS: O2SAT 100
== END 2018-04-09 13:00 | disposition home or self-care (01) ==
LOC: C.ER 11:11
DX: O23.41 Unspecified infection of urinary tract in pregnancy, first trimester (principal); Z3A.00 Weeks of gestation of pregnancy not specified

== ENCOUNTER 2018-04-26 13:00 | Emergency (ER) | payer OTHER ==
[2018-04-26 13:01] VITALS: BMI 32.9
[2018-04-26 13:17] VITALS: BP 115/80; PULSE 68; RESP 18; TEMP 99; O2SAT 100
[2018-04-26 13:57] LABS: SQUAMOUS EPITHIAL 8 /hpf (0-5); URINE BACTERIA RARE (<OCC); URINE BILIRUBIN NEGATIVE (NEGATIVE); URINE BLOOD NEGATIVE (NEGATIVE); URINE CLARITY Hazy (Clear); URINE COLOR Yellow (YELLOW); URINE GLUCOSE (UA) NORMAL (Normal); URINE LEUKOCYTE ESTERASE 3+ Leu/uL (Negative); URINE PROTEIN NEGATIVE (NEGATIVE)
[2018-04-26 14:00] LABS: BASO % 0.5 % (0.0-2.0); EOS # 0.2 K/uL (0.0-0.7); EOS % 2.3 % (0.0-4.0); HEMOGLOBIN 12.5 g/dL (11.0-16.0); LYMPH # 1.2 K/uL (1.0-4.3); MEAN CELL VOLUME 91.6 fL (81.0-99.0); MEAN CORPUSCULAR HEMOGLOBIN 31.6 pg (27.0-31.0); MEAN CORPUSCULAR HGB CONC 34.5 g/dL (33.0-37.0); MEAN PLATELET VOLUME 8.3 fL (7.2-11.7); MONO # 0.5 K/uL (0.0-0.8); MONO % 6.2 % (0.0-10.0); NEUT # 6.6 K/uL (1.8-7.0); RBC 3.95 Mil/uL (3.80-5.20); WHITE BLOOD COUNT 8.6 K/uL (4.8-10.8)
--- NOTE | 2018-04-26 14:06 | C.PDOC ---
History Of Present Illness 28 y/o 9-week female with h/o UTIs presents to the ED c/o intermittent dysuria x 2 weeks. States it feels like her typical UTIs. Pt was seen here 04/09, placed on Macrobid. States that symptoms were relieved for a few days and then returned. Pt visited OBGYN 4 days ago after symptoms did not resolve, and was placed on Macrobid again, currently on day 4 of antibiotics without relief. Original culture showed contamination with multiple species, so sensitivity could not be performed. No concern for STI. Pt currently c/o dull bilateral lower back pain. Denies fevers, chills, N/V/D, abdominal pain, SOB, chest pain, headache, hematuria, vaginal discharge, vaginal odor, vaginal bleeding, pelvic pain. Chief Complaint (Nursing): Female Genitourinary Past Medical History Reviewed: Historical Data, Nursing Documentation, Vital Signs Vital Signs: Last Vital Signs Temp 99 F 04/26/18 13:11 Pulse 68 04/26/18 13:11 Resp 18 04/26/18 13:11 BP 115/80 04/26/18 13:11 Pulse Ox 100 04/26/18 13:11 - [facility] Procedures DELIVERY OF PRODUCTS OF CONCEPTION, EXTERNAL APPROACH (11/16/16) MONITORING NOS (10/17/14) MANUAL ASSIST DELIV NEC (10/17/14) REMOVAL OF FB NOS (10/01/14) Family History: States: Unknown Family Hx - Social History Hx Tobacco Use: No Hx Alcohol Use: No Hx Substance Use: No - Immunization History Hx Tetanus Toxoid Vaccination: No Hx Influenza Vaccination: No Hx Pneumococcal Vaccination: No Review Of Systems Except As Marked, All Systems Reviewed And Found Negative. Constitutional: Negative for: Fever, Chills Eyes: Negative for: Vision Change Cardiovascular: Negative for: Chest Pain, Palpitations Respiratory: Negative for: Cough, Shortness of Breath Gastrointestinal: Negative for: Nausea, Vomiting, Abdominal Pain Genitourinary: Positive for: Dysuria, Frequency. Negative for: Incontinence, Hematuria, Vaginal Discharge, Vaginal Bleeding, Pelvic Pain, Rash Musculoskeletal: Positive for: Back Pain (bilateral mild, dull lower back pain) Physical Exam - Physical Exam Appears: Well, Non-toxic, No Acute Distress Skin: Normal Color, Warm, Dry, No Pale Head: Atraumatic, Normacephalic Eye(s): bilateral: Normal Inspection, PERRL, EOMI Nose: Normal Throat: Normal Neck: Normal, Normal ROM, No Midline Cervical Tenderness, No Paracervical Tenderness Lymphatic: Normal Exam Chest: Symmetrical, No Deformity Cardiovascular: Rhythm Regular Respiratory: Normal Breath Sounds Gastrointestinal/Abdominal: Normal Exam, Bowel Sounds (normal), Soft, No Tenderness, No Distention, No Guarding, No Rebound Back: Normal Inspection, No CVA Tenderness, No Vertebral Tenderness, No Decreased ROM, No Muscle Spasm, No Paraspinal Tenderness Extremity: Normal ROM, No Tenderness, No Swelling Extremity: Bilateral: Atraumatic, Normal Color And Temperature, Normal ROM Pulses: Left Radial: Normal, Right Radial: Normal Neurological/Psych: Oriented x3, Normal Speech, Normal Cognition, Normal Cranial Nerves, Normal Motor, Normal Sensation Gait: Steady ED Course And Treatment - Laboratory Results Result Diagrams: 04/26/18 13:57 04/26/18 13:57 Lab Interpretation: Normal O2 Sat by Pulse Oximetry: 100 Medical Decision Making Medical Decision Making: Initial Plan: * Labs * UA, culture * Reassess and disposition UA: 3+ leuk esterase, WBC, otherwise wnl CBC: wnl CMP: wnl Case and lab results reviewed with NORI Clayton, who recommends treatment with Keflex and followup with primary and OBGYN due to normal lab findings, typical UTI symptoms, and lack of CVA tenderness, fever, N/V, or abdominal pain. Strict instructions given to pt on signs to return to ER, to include vaginal bleeding or discharge, fever, worsening back pain, abdominal pain, or any other new or worsening symptoms. Pt verbalizes understanding. She understands the importance of followup with OB and her primary doctor. Pt stable for discharge. Impression: UTI Plan: * Take keflex twice daily x 7 day (first dose here) * Increase fluids * Followup with primary within 2 days * Followup with OBGYN within 2 days * Followup with urology if symptoms persist * Return for new/worsening symptoms Disposition Discussed With : Kelsi Clayton (12:45) Comment: Case and lab results discussed with NORI Clayton, who recommends switch to Keflex, 7 days and followup with primary doctor. - Disposition Referrals: Abdiaziz Maldonado MD [Staff Provider] - Disposition: HOME/ ROUTINE Disposition Time: 14:43 Condition: IMPROVED Additional Instructions: Take keflex twice daily x 7 days Increase fluids Followup with primary within 2 days Followup with OBGYN within 2 days Followup with urology if symptoms persist Return for new/worsening symptoms Prescriptions: Cephalexin [Keflex] 500 mg PO BID 7 Days #13 capsule Instructions: Urinary Tract Infections in Adults Forms: Work[employer] Excuse, [facility] (Latvian) - Clinical Impression Clinical Impression: UTI (urinary tract infection),
[2018-04-26 14:14] LABS: ALB/GLOB RATIO 1.6 (1.0-2.1); ALBUMIN 4.4 g/dL (3.5-5.0); ALT/SGPT 26 U/L (9-52); AST/SGOT 15 U/L (14-36); BLOOD UREA NITROGEN 11 mg/dL (7-17); CALCIUM 9.3 mg/dl (8.6-10.4); GFR NON-AFRICAN AMERICAN > 60
== END 2018-04-26 14:59 | disposition home or self-care (01) ==
LOC: C.ER 13:00
DX: O23.40 Unspecified infection of urinary tract in pregnancy, unspecified trimester (principal); Z3A.00 Weeks of gestation of pregnancy not specified

== ENCOUNTER 2018-05-06 10:25 | Emergency (ER) | payer OTHER ==
[2018-05-06 10:25] VITALS: BMI 32.9
--- NOTE | 2018-05-06 11:13 | C.PDOC ---
History Of Present Illness 28 y/o female, currently 10 weeks , presents to ED stating she is concerned about her baby. She has history of stillborn last year and complains of nausea and pelvic cramping since this began. She states her symptoms were resolved yesterday, and because of that she is concerned. Patient denies headache, fever/chills, vomiting, diarrhea, vaginal bleeding/discharge. Time Seen by Provider: 05/06/18 10:39 Chief Complaint (Nursing): Medical Clearance History Per: Patient History/Exam Limitations: no limitations Current Symptoms Are (Timing): Gone Past Medical History Reviewed: Historical Data, Nursing Documentation, Vital Signs - Medical History PMH: No Chronic Diseases - [facility] Procedures DELIVERY OF PRODUCTS OF CONCEPTION, EXTERNAL APPROACH (11/16/16) MONITORING NOS (10/17/14) MANUAL ASSIST DELIV NEC (10/17/14) REMOVAL OF FB NOS (10/01/14) Family History: States: No Known Family Hx - Social History Hx Tobacco Use: No Hx Alcohol Use: No Hx Substance Use: No - Immunization History Hx Tetanus Toxoid Vaccination: No Hx Influenza Vaccination: No Hx Pneumococcal Vaccination: No Review Of Systems Constitutional: Negative for: Fever, Chills Cardiovascular: Negative for: Chest Pain, Palpitations Respiratory: Negative for: Cough, Shortness of Breath Gastrointestinal: Positive for: Nausea. Negative for: Vomiting, Abdominal Pain, Diarrhea Genitourinary: Positive for: Pelvic Pain (cramping) Neurological: Negative for: Weakness, Numbness Physical Exam - Physical Exam Appears: Well, Non-toxic, No Acute Distress Skin: Warm, Dry Eye(s): bilateral: Normal Inspection Oral Mucosa: Moist Neck: Supple Cardiovascular: Rhythm Regular Respiratory: Normal Breath Sounds, No Rales, No Rhonchi, No Wheezing Gastrointestinal/Abdominal: Normal Exam, Bowel Sounds, Soft, No Tenderness Extremity: Bilateral: Atraumatic, Normal Color And Temperature, Normal ROM Neurological/Psych: Oriented x3 Gait: Steady ED Course And Treatment O2 Sat by Pulse Oximetry: 100 (RA) Pulse Ox Interpretation: Normal - CT Scan/US Obstetrics US Other Rad Studies (CT/US): Read By Radiologist, Radiology Report Reviewed CT/US Interpretation: FINDINGS: UTERUS: There is a single. Gestational sac: MSD = 4.48 cm = 10 weeks 0 days. Yolk sac: pole: CRL = 3.29 cm = 10 weeks 1 day. Heart rate: 158 bpm. age (Ultrasound estimated): 10 weeks 1 day +/-0 weeks 5 day. Kim-gestational hemorrhage: None. Date of delivery (Ultrasound estimated) : 12/01/2018. Uterus measures 14.0 x 7.5 x 7.5 cm. Normal in size and appearance. CERVIX: Measures 3.7 cm. Long and closed. No cervical abnormality seen. RIGHT OVARY: Measures 3.4 x2 0.0 x 2.9 cm. No mass lesion. Normal flow. LEFT OVARY: Measures 2.9 x 1.9 x 2.7 cm. No solid mass. Normal flow. FREE FLUID: None. OTHER FINDINGS: None. IMPRESSION: Single living intrauterine gestation estimated at approximately 10 weeks 1 day +/-0 weeks 5 day. Heart rate documented at 158 BPM Progress Note: UA, beta quant, and transvaginal US ordered and reviewed. Reevaluation Time: 15:40 Reassessment Condition: Improved (Patient reassessed, is resting comfortably, in no current pain or distress. US, beta quant, UA WNL. Patient reassurred, instructed to follow up with master brewer within 1 week. She understands she should return toED if she has any concerning symptoms.) Disposition Counseled Patient/Family Regarding: Studies Performed, Diagnosis, Need For Followup - Disposition Referrals: [facility] [Outside] Disposition: HOME/ ROUTINE Disposition Time: 15:40 Condition: STABLE Additional Instructions: FOLLOW UP WITH YOUR CUSTOMER SERVICE PROFESSIONAL WITHIN 1 WEEK RETURN TO ER IF YOU HAVE ANY CONCERNING SYMPTOMS Instructions: Symptoms Forms: [email or web address] (C[place] Rican) Print Language: GERMAN - Clinical Impression Clinical Impression: - Scribe Statement The provider has reviewed the documentation as recorded by the Fatmata Crespo Provider Attestation: All medical record entries made by the Fatmata were at my direction and personally dictated by me. I have reviewed the chart and agree that the record accurately reflects my personal performance of the history, physical exam, medical decision making, and the department course for this patient. I have also personally directed, reviewed, and agree with the discharge instructions and disposition.
[2018-05-06 11:22] VITALS: BP 120/74; PULSE 100; RESP 20; O2SAT 100
[2018-05-06 12:17] LABS: SQUAMOUS EPITHIAL 5 /hpf (0-5); URINE BACTERIA RARE (<OCC); URINE BILIRUBIN NEGATIVE (NEGATIVE); URINE BLOOD NEGATIVE (NEGATIVE); URINE CLARITY Clear (Clear); URINE COLOR Yellow (YELLOW); URINE GLUCOSE (UA) NORMAL (Normal); URINE LEUKOCYTE ESTERASE TRACE Leu/uL (Negative); URINE PROTEIN NEGATIVE (NEGATIVE); URINE UROBILINOGEN NORMAL mg/dL (0.2-1.0)
--- NOTE | 2018-05-06 15:00 | US ---
Date of service: 05/06/2018 PROCEDURE: OB Pelvic Ultrasound HISTORY: LMP: 02/22/2018 COMPARISON: None available. FINDINGS: UTERUS: There is a single Gestational sac: MSD = 4.48 cm = 10 weeks 0 days Yolk sac: pole: CRL = 3.29 cm = 10 weeks 1 day Heart rate: 158 bpm. age (Ultrasound estimated): 10 weeks 1 day +/-0 weeks 5 day Kim-gestational hemorrhage: None. Date of delivery (Ultrasound estimated) : 12/01/2018 Uterus measures 14.0 x 7.5 x 7.5 cm. Normal in size and appearance. CERVIX: Measures 3.7 cm. Long and closed. No cervical abnormality seen. RIGHT OVARY: Measures 3.4 x2 0.0 x 2.9 cm. No mass lesion. Normal flow. LEFT OVARY: Measures 2.9 x 1.9 x 2.7 cm. No solid mass. Normal flow. FREE FLUID: None. OTHER FINDINGS: None. IMPRESSION: Single living intrauterine gestation estimated at approximately 10 weeks 1 day +/-0 weeks 5 day. Heart rate documented at 158 BPM
[2018-05-06 15:48] VITALS: TEMP 98
== END 2018-05-06 15:48 | disposition home or self-care (01) ==
LOC: C.ER 10:25
DX: O26.891 Other specified pregnancy related conditions, first trimester (principal); Z3A.10 10 weeks gestation of pregnancy